=== PATIENT | male | born 1975 | race Caucasian/White ===

== ENCOUNTER 2017-07-28 15:49 | Emergency (ER) | payer SELFPAY ==
[~2017-07-28] VITALS: Ht 177.8 cm; Wt 77.1 kg
[2017-07-28 15:49] VITALS: BP 140/82
--- NOTE | 2017-07-28 15:55 | NUR ---
GOT UP FROM HIS CHAIR, AMBULATING IN HALLWAY. WHEN ASKED TO SIT AND WAIT FOR DR LIMA, HE REFUSED AND SAID THAT HE DOESN'T WANT TO SEE THE DOCTOR. HE THEN PROCEEDED TO LEAVE THE ER WITH STEADY GAIT.
== END 2017-07-28 16:04 | disposition left against medical advice (07) ==
LOC: ER 15:51
DX: Z53.21 Procedure and treatment not carried out due to patient leaving prior to being seen by health care provider (principal)
CPT/HCPCS: A4606; Z7610